=== PATIENT | female | born 1970 | race Caucasian/White ===

== ENCOUNTER 2019-08-19 07:51 | Emergency (ER) | payer OTHER ==
[~2019-08-19] VITALS: Ht 160 cm; Wt 68.0 kg
[2019-08-19 13:58] VITALS: BP 121/66
== END 2019-08-19 13:59 | disposition home or self-care (01) ==
LOC: ER 07:51
DX: M54.9 Dorsalgia, unspecified (principal); M25.561 Pain in right knee; M25.552 Pain in left hip; M25.551 Pain in right hip; R10.9 Unspecified abdominal pain
CPT/HCPCS: 72070; 73562; 74176; 81025; 99284